=== PATIENT | female | born 1945 | race Caucasian/White ===

== ENCOUNTER → 2021-01-17 | Outpatient (CLI) | payer MEDICARE ==
[2021-01-18 08:15] LABS: VITAMIN D, 25-HYDROXY 32.3 ng/mL (30.0-100.0)
[2021-01-18 13:15] LABS: ALDOLASE 5.5 U/L (3.3-10.3)
[2021-01-18 15:15] LABS: RHEUMATOID ARTHRITIS FACTOR 11.2 IU/mL (0.0-13.9)
== END ==
LOC: LAB 12:54
PROVIDERS: Internal Medicine
DX: M79.641 Pain in right hand (principal); M79.642 Pain in left hand; E79.0 Hyperuricemia without signs of inflammatory arthritis and tophaceous disease; M19.90 Unspecified osteoarthritis, unspecified site; R53.83 Other fatigue; M79.10 Myalgia, unspecified site; E55.9 Vitamin D deficiency, unspecified; M25.50 Pain in unspecified joint; R76.8 Other specified abnormal immunological findings in serum; D89.89 Other specified disorders involving the immune mechanism, not elsewhere classified; M19.042 Primary osteoarthritis, left hand; M19.041 Primary osteoarthritis, right hand
CPT/HCPCS: 73130; 82085; 82550; 82728; 83520; 84439; 84443; 84550; 85652; 86140; 86200; 86431